=== PATIENT | female | born 1970 | race Caucasian/White ===

== ENCOUNTER 2025-05-30 12:06 | Emergency (ER) | payer OTHER, SELFPAY ==
[2025-05-30 12:06] VITALS: BMI 22.3
[2025-05-30 12:09] VITALS: BP 182/117
--- NOTE | 2025-05-30 12:49 | ED.GENMED ---
History of Present Illness
General
Chief Complaint: Dizziness
Source: patient
Exam Limitations: none
Time Seen by Provider: 05/30/25 12:38
Nursing documentation reviewed up to this point in time: agreed with
History of Present Illness
History of Present Illness:
55-year-old female with no reported chronic medical issues presents to the ER with her for evaluation of dizziness. Patient reports onset of symptoms 2 days ago and they have been constant since that time. She reports an off-balance
'spacey' sensation worse with movement/positional changes. She reports associated congestion particular in the left side of her sinuses as well as a left-sided headache. She reports some mild left-sided ear pressure. She denies any associated
nausea or vomiting. She denies any change in vision or speech, focal weakness or numbness. She denies having had similar symptoms in the past. She reports that she saw her primary provider 2 days ago shortly after onset and was prescribed
meclizine for use as needed; she says that this has not helped and she felt symptoms were actually bit worse this morning which prompted ER visit.
Review of Systems
Review of Systems
All Other Systems: ROS reviewed and negative except as documented in HPI and ROS
Constitutional: Denies fever
EENT: Reports other (Sinus pressure, ear pressure)
Respiratory: Denies trouble breathing
Cardiac: Denies chest pain, palpitations or syncope
ABD/GI: Denies abdominal pain, nausea or vomiting
Musculoskeletal: Denies neck pain or back pain
Neurological: Reports dizzy and headache; Denies weakness or numbness
Phy Exam
Physical Exam
Physical Exam:
General: Awake, alert, oriented x3; no acute distress
Head: Normocephalic, atraumatic
Eyes: Conjunctiva normal, EOMI without nystagmus appreciable, pupils equal round and reactive to light bilaterally
Throat: Airway intact, handling secretions
Neck: Trachea midline, supple without meningismus
Lungs: Clear to auscultation bilaterally, no wheezing, rales, rhonchi
Heart: Regular rate and rhythm, no murmurs, gallops, or rubs
Neuro: Cranial nerves intact, speech fluid, motor and sensory intact in all extremities, no limb ataxia
Extremities: No edema in extremities, equal pulses in all extremities
Scores
Heart Failure Risk
Heart Failure Risk Score: Not Applicable
Heart Score for Chest Pain Patients
STEMI patient?: Not applicable
Withdrawal Assessment of Alcohol
Withdrawal Assessment Completed?: Not applicable
Course
Orders/Labs/Results
Orders:
Orders
05/30/25 12:09
EKG [Electrocardiogram (*1)] Urgent
Reason for Study: Vertigo / Dizzy
EKG- Treatment ONCE
05/30/25 12:48
CT Head W/o Iv Contrast Urgent
Comment:
Reason For Exam: dizziness, left sided headache
05/30/25 13:12
Basic Metabolic Panel Urgent
Complete Blood Count/With Diff Urgent
05/30/25 13:13
COVID-19 Antigen Urgent
Source: Nasal Swab
Influenza A+B Rapid Molecular Urgent
LORE Source: Nasal Swab
Specimen Description:
05/30/25 13:41
0.9% Sodium Chloride 500 ml [Nss] 500 ml IV BOLUS
diazePAM [Valium Injection] 2 mg IV NOW STA
05/30/25 13:12
05/30/25 13:12
Vital Signs
Initial and Last Documented VS:
Initial Vital Signs
Temp Pulse Resp BP Pulse Ox
36.5 C 81 16 182/117 99
05/30/25 12:09 05/30/25 12:09 05/30/25 12:09 05/30/25 12:09 05/30/25 12:09
Last Documented Vital Signs
Temp Pulse Resp BP Pulse Ox
36.5 C 69 16 147/97 98
05/30/25 12:09 05/30/25 14:00 05/30/25 12:09 05/30/25 14:00 05/30/25 14:00
MDM/Problems Addressed
Differential Diagnosis Includes:
Anemia, electrolyte derangement, peripheral vertigo (sinus disease/eustachian tube dysfunction, BPPV, M�ni�re's, labyrinthitis, etc), central vertigo considered less likely (stroke, brain bleed, mass, etc)
MDM/Problems Addressed:
55-year-old female presents for evaluation of dizziness over the past 48 hours associated with sinus pressure and headache. Hypertensive but otherwise normal vitals. Physical exam as above. She has been using meclizine with no real improvement.
Her EKG shows sinus rhythm here. Overall picture seems most consistent with peripheral vertigo however given persistence of symptoms and failure of improvement with meclizine we will plan to check basic labs, CT head. Will treat with fluids and
some Valium. Reassess after the above.
Labs reviewed: CBC and CMP unremarkable. CT head no acute abnormalities. EKG shows sinus rhythm. Patient did have some symptomatic improvement with Valium here was able to get up and walk to the bathroom without any issues. Overall clinical
picture consistent with a peripheral vertigo. She reports that she has ENT appointment scheduled for Wednesday. I think she is a reasonable candidate for discharge with ENT follow-up as an outpatient. We spoke about return precautions and all
questions were answered.
Acute Exacerbation and/or Progression of Chronic Illness:
Acutely hypertensive
Acute Exacerbation and/or Progression of Chronic Illness: HTN
*Radiology
Radiology exam reviewed: radiology read reviewed
*Pulse Oximetry
SaO2: 99
Oxygen Mode of Delivery: Room air
Patient hypoxic: no (99%)
*EKG
Interpreted by ED Provider?: Yes
Rate: normal
Rhythm: sinus
[place]: normal axis
Interval: normal interval
QRS Pattern: normal QRS
Ischemia: no ischemia
*Critical Care Note
Total Time (30-74mins, 75-104mins- exclusive of procedures): Not Applicable
Data Reviewed
Source: patient and spouse
ED Attending Note
-
Portions of this chart may have been created with voice recognition software.� Occasional wrong word or��sound alike� substitutions may have occurred due to the inherent limitations of voice recognition software.
Discharge Plan
Departure
Patient Disposition: Home (Routine Discharge)
Date of Disposition: 05/30/25
Time of Disposition: 14:33
Patient with high blood pressure during this ER visit?: Yes
Discharge Problem:
Vertigo
Instructions: Vertigo (a Type of Dizziness) (DC)
Referrals:
Alexia Willard CRNP [Family Provider] - Follow up in 1 week
Activity Restrictions/Additional Instructions:
You should follow-up with the ENT as scheduled on Wednesday. If your symptoms are worsening please return to the ER.
Thank you for visiting the Emergency Department at [facility].
1. Please schedule a follow up appointment as directed. Call first thing tomorrow morning to make an appointment.
2. If indicated, please take your medications as instructed and indicated on discharge paperwork.
3. If any of your symptoms do not improve, or persist, or become more severe within 6-12 hours, please return to the emergency department for further care.
4. Please return to the emergency department if you develop a headache, neck pain/stiffness, fever greater than 100.4F, chest pain, shortness of breath, persistent nausea, vomiting, slurred speech, difficulty walking, numbness/tingling, weakness,
signs of infection or any other symptoms that are worrisome to you.
Please call [phone] if you have any questions.
Interventions
Interventions:
*Risk Screen - Suicide Last Done: 05/30/25 12:09
*General Assessment Last Done: 05/30/25 12:09
*ED- Fall Risk Assessment Last Done: 05/30/25 12:09
*ED COVID-19 Vaccine History Last Done: 05/30/25 12:09
ED- Neurological Assessment Last Done: 05/30/25 12:40
ED Swallowing Screen Last Done: 05/30/25 12:40
Discharge Date and Time
Print Language: [id number]
[2025-05-30 13:21] VITALS: BP 155/89
[2025-05-30 13:30] VITALS: BP 146/92
[2025-05-30 13:33] LABS: Hematocrit 42.2 % (37.0-47.0); Hemoglobin 14.2 g/dL (12.0-16.0); Mean Corp Hgb Conc. 33.6 g/dL (33.0-37.0); Mean Corpuscular Volume 87.6 fL (81.0-99.0); Nucleated Red Blood Cells % 0 %; Platelet Count 260 10^3/uL (130-400); Red Cell Dist. Width 13.4 % (11.5-14.5)
[2025-05-30 13:51] LABS: Blood Urea Nitrogen 13 mg/dl (7-17); Calcium 9.7 mg/dl (8.4-10.2); Carbon Dioxide 28 mmol/L (22-30); Chloride 102 mmol/L (98-107); Estimated Creatinine Clearance 77 ml/min; Glucose 96 mg/dl (70-99); Sodium 135 mmol/L (135-145); eGFR > 60.00
[2025-05-30] MEDS: VALIUM INJECTION 2 MG IV (13:57)
[2025-05-30] MEDS: NSS 500 IV (13:59)
[2025-05-30 14:00] VITALS: BP 147/97
[2025-05-30 14:15] LABS: COVID-19 Antigen Negative (Negative)
== END 2025-05-30 14:36 | disposition home or self-care (01) ==
LOC: EMR 12:06
PROVIDERS: EMERGENCY PHYSICIAN Emergency Medicine; FAMILY PHYSICIAN Nurse Practitioner Family
DX: R42 Dizziness and giddiness (principal); R51.9 Headache, unspecified; I10 Essential (primary) hypertension; Z11.52 Encounter for screening for COVID-19
CPT/HCPCS: 99284; 96374; 96361; 70450; 80048; 85025; 87502; 87811; 93005